=== PATIENT | female | born 1950 | race Caucasian/White ===

== ENCOUNTER 2018-01-02 08:48 | Day surgery (SDC) | payer MEDICARE, OTHER ==
[~2018-01-02 08:48] MED LIST: Cefuroxime 10 MG/ML SYRINGE EYERT SCH; Lidocaine 1% PF 2 ML SDV INJECT SCH; Pilocarpine 4% Ophth Soln 15 ML Bot EYERT SCH
[2018-01-02] MEDS: Polymyxin B/Trimethoprim 10 ML Bottle EYERT SCH ×3 (09:13→11:01)
[2018-01-02] MEDS: Brimonidine 0.2% Ophth Soln 5 ML Bottle EYERT SCH ×3 (09:20→11:01)
[2018-01-02] MEDS: Phenylephrine 2.5% Ophth Soln 2 ML Bot EYERT SCH ×5 (09:24→10:42)
[2018-01-02] MEDS: Tropicamide 1% Ophth Soln 3 ML Bottle EYERT SCH ×4 (09:28→10:12)
--- NOTE | 2018-01-02 09:34 | PCM.PREANE ---
Preanesthetic Assessment - Anesthesia/Transfusion/Family Hx Anesthesia History: Prior Anesthesia Without Reaction Family History of Anesthesia Reaction: No Transfusion History: No Prior Transfusion(s) - Review of Systems General: No Symptoms Pulmonary: Other Cardiovascular: Other ( high cholesterol, s/p stent) Gastrointestinal: No Symptoms Neurological: Difficulty Walking (pt feels walking has gotten worse), Other (hx of stroke, 10-12 years ago, right carotid 100% occluded and had surgery) Other: Reports: Liver Problems (hepatitis) - Physical Assessment NPO Status Date: 01/01/18 NPO Status Time: 21:00 Pulse: 56 O2 Sat by Pulse Oximetry: 99 Respiratory Rate: 16 Blood Pressure: 100/51 Vital Signs: Last Vital Signs Temp 36.8 C 01/02/18 09:10 Pulse 56 L 01/02/18 09:10 Resp 16 01/02/18 09:10 BP 100/51 L 01/02/18 09:10 Pulse Ox 99 01/02/18 09:10 Height: 1.6 m Weight: 68.039 kg ASA Class: 3 Mental Status: Alert & Oriented x3 Airway Class: Mallampati = 2 Dentition: Reports: Dentures Thyro-Mental Finger Breadths: 3 Mouth Opening Finger Breadths: 3 ROM/Head Extension: Full Lungs: Clear to Auscultation, Normal Respiratory Effort Cardiovascular: Regular Rate, Regular Rhythm - Allergies Allergies/Adverse Reactions: Allergies Allergy/AdvReac Type Severity Reaction Status Date / Time No Known Allergies Allergy Verified 01/01/18 13:05 - Anesthesia Plan Beta Sadie: Metoprolol Med Last Dose Date: 01/02/18 Med Last Dose Time: 05:00 - Acknowledgements Anesthesia Type Planned: MAC Pt an Appropriate Candidate for the Planned Anesthesia: Yes Alternatives and Risks of Anesthesia Discussed w Pt/Guardian: Yes Pt/Guardian Understands and Agrees with Anesthesia Plan: Yes PreAnesthesia Questionnaire - HOME MEDS Home Medications: Home Meds Aspirin [Halfprin] 81 mg PO DAILY 01/01/18 [History] Carbidopa 25 mg PO BID 01/01/18 [History] Cholecalciferol (Vitamin D3) [Vitamin D3] 1,000 units PO DAILY 01/01/18 [History ] Doxylamine Succinate [Unisom] 25 mg PO BEDTIME 01/01/18 [History] Metoprolol Tartrate 12.5 mg PO BID 01/01/18 [History] atorvaSTATin [Lipitor] 40 mg PO BEDTIME 01/01/18 [History] - CURRENT (IN HOUSE) MEDS Current Meds: Current Medications Brimonidine Tartrate (Alphagan 0.2% Ophth Soln) 0 ml EYERT ASDIRECTED CHONG Stop: 01/02/18 18:00 Last Admin: 01/02/18 09:20 Dose: 1 drop Cefuroxime Sodium (Zinacef) 0 mg EYERT ASDIRECTED CHONG Stop: 01/02/18 18:00 Lidocaine HCl (Xylocaine-Mpf 1%) 0 ml INJECT ASDIRECTED CHONG Stop: 01/02/18 18:00 Phenylephrine HCl ([place]-Synephrine 2.5% Ophth Soln) 0 ml EYERT ASDIRECTED CHONG Stop: 01/02/18 18:00 Last Admin: 01/02/18 09:24 Dose: 1 drop Pilocarpine HCl (Pilocar 4% Ophth Soln) 0 ml EYERT ASDIRECTED CHONG Stop: 01/02/18 18:00 Polymyxin/Trimethoprim Sulfate (Polytrim Ophth Soln) 0 ml EYERT ASDIRECTED CHONG Stop: 01/02/18 18:00 Last Admin: 01/02/18 09:13 Dose: 1 drop Tetracaine HCl (Tetracaine 0.5% Steri-Unit Viri) 0 ml EYERT ASDIRECTED CHONG Stop: 01/02/18 18:00 Tropicamide (Mydriacyl 1% Ophth Soln) 0 ml EYERT ASDIRECTED CHONG Stop: 01/02/18 18:00
[2018-01-02] MEDS: Tetracaine HCl/PF 0.5% 4 ML Bottle EYERT SCH ×2 (10:26→10:47)
--- NOTE | 2018-01-02 11:06 | PCM48HPAN ---
Post Anesthesia Note - EVALUATION WITHIN 48HRS OF ANESTHETIC Vital Signs in Normal Range: Yes Patient Participated in Evaluation: Yes Respiratory Function Stable: Yes Airway Patent: Yes Cardiovascular Function Stable: Yes Hydration Status Stable: Yes Pain Control Satisfactory: Yes Nausea and Vomiting Control Satisfactory: Yes Mental Status Recovered: Yes Pulse Rate: 52 SaO2: 100 Resp Rate: 16 Blood Pressure: 110/54
== END 2018-01-02 11:15 | disposition home or self-care (01) ==
LOC: JD.SDS 08:48
PROVIDERS: ATTEND Ophthalmology
DX: H25.813 Combined forms of age-related cataract, bilateral (principal); E78.00 Pure hypercholesterolemia, unspecified; H35.363 Drusen (degenerative) of macula, bilateral; H35.3131 Nonexudative age-related macular degeneration, bilateral, early dry stage; G20 Parkinson's disease; I67.89 Other cerebrovascular disease; H16.103 Unspecified superficial keratitis, bilateral; H16.223 Keratoconjunctivitis sicca, not specified as Sjogren's, bilateral; H02.831 Dermatochalasis of right upper eyelid; H35.1 Retinopathy of prematurity; Z79.82 Long term (current) use of aspirin; Z79.899 Other long term (current) drug therapy
CPT/HCPCS: 66984; C1780; J0697; J2001; A9270-GY

== ENCOUNTER 2018-01-30 07:04 | Day surgery (SDC) | payer MEDICARE, OTHER ==
[2018-01-30] MEDS: Polymyxin B/Trimethoprim 10 ML Bottle EYERT SCH ×4 (07:18→09:01)
[2018-01-30] MEDS: Brimonidine 0.2% Ophth Soln 5 ML Bottle EYELF SCH ×4 (07:24→09:01)
--- NOTE | 2018-01-30 07:26 | PCM.PREANE ---
Preanesthetic Assessment - Anesthesia/Transfusion/Family Hx Anesthesia History: Prior Anesthesia Without Reaction Family History of Anesthesia Reaction: No Transfusion History: No Prior Transfusion(s) - Review of Systems General: No Symptoms, Other (hx hepatitis) Pulmonary: No Symptoms Cardiovascular: No Symptoms, Other (high cholesterol) Gastrointestinal: No Symptoms Neurological: Other (hx of stroke with weakness on left side) - Physical Assessment NPO Status Date: 01/29/18 NPO Status Time: 21:00 Pulse: 50 O2 Sat by Pulse Oximetry: 98 Respiratory Rate: 16 Blood Pressure: 122/60 Weight: 68.039 kg ASA Class: 3 Mental Status: Alert & Oriented x3 Airway Class: Mallampati = 2 Dentition: Reports: Normal Dentition Thyro-Mental Finger Breadths: 3 Mouth Opening Finger Breadths: 3 ROM/Head Extension: Full Lungs: Clear to Auscultation, Normal Respiratory Effort Cardiovascular: Regular Rate, Regular Rhythm - Allergies Allergies/Adverse Reactions: Allergies Allergy/AdvReac Type Severity Reaction Status Date / Time No Known Allergies Allergy Verified 01/29/18 12:37 - Blood Blood Available: No Product(s) Available: None - Anesthesia Plan Pre-Op Medication Ordered: None Beta Sadie: Metoprolol Med Last Dose Date: 01/30/18 Med Last Dose Time: 06:00 - Acknowledgements Anesthesia Type Planned: MAC Pt an Appropriate Candidate for the Planned Anesthesia: Yes Alternatives and Risks of Anesthesia Discussed w Pt/Guardian: Yes Pt/Guardian Understands and Agrees with Anesthesia Plan: Yes PreAnesthesia Questionnaire - HOME MEDS Home Medications: Home Meds Aspirin [Halfprin] 81 mg PO DAILY 01/01/18 [History] Carbidopa 25 mg PO BID 01/01/18 [History] Cholecalciferol (Vitamin D3) [Vitamin D3] 1,000 units PO DAILY 01/01/18 [History ] Doxylamine Succinate [Unisom] 25 mg PO BEDTIME 01/01/18 [History] Metoprolol Tartrate 12.5 mg PO BID 01/01/18 [History] atorvaSTATin [Lipitor] 40 mg PO BEDTIME 01/01/18 [History] - CURRENT (IN HOUSE) MEDS Current Meds: Current Medications Brimonidine Tartrate (Alphagan 0.2% Ophth Soln) 0 ml EYELF ASDIRECTED CHONG Stop: 01/30/18 19:00 Cefuroxime Sodium (Zinacef) 0 mg EYELF ASDIRECTED CHONG Stop: 01/30/18 19:00 Lidocaine HCl (Xylocaine-Mpf 1%) 0 ml INJECT ASDIRECTED CHONG Stop: 01/30/18 19:00 Phenylephrine HCl ([place]-Synephrine 2.5% Ophth Soln) 0 ml EYELF ASDIRECTED CHONG Stop: 01/30/18 19:00 Pilocarpine HCl (Pilocar 4% Ophth Soln) 0 ml EYELF ASDIRECTED CHONG Stop: 01/30/18 19:00 Polymyxin/Trimethoprim Sulfate (Polytrim Ophth Soln) 0 ml EYERT ASDIRECTED CHONG Stop: 01/30/18 19:00 Last Admin: 01/30/18 07:18 Dose: 1 drop Tetracaine HCl (Tetracaine 0.5% Steri-Unit Viri) 0 ml EYELF ASDIRECTED CHONG Stop: 01/30/18 19:00 Tropicamide (Mydriacyl 1% Ophth Soln) 0 ml EYELF ASDIRECTED CHONG Stop: 01/30/18 19:00
[2018-01-30] MEDS: Phenylephrine 2.5% Ophth Soln 2 ML Bot EYELF SCH ×6 (07:29→08:39)
[2018-01-30] MEDS: Tropicamide 1% Ophth Soln 3 ML Bottle EYELF SCH ×4 (07:34→08:14)
[2018-01-30] MEDS: Tetracaine HCl/PF 0.5% 4 ML Bottle EYELF SCH ×3 (07:58→08:49)
[2018-01-30] MEDS: Lidocaine 1% PF 2 ML SDV INJECT SCH ×2 (07:58→08:49)
[2018-01-30] MEDS: Cefuroxime 10 MG/ML SYRINGE EYELF SCH ×2 (07:59→09:01)
[2018-01-30] MEDS: Pilocarpine 4% Ophth Soln 15 ML Bot EYELF SCH ×2 (08:00→09:01)
--- NOTE | 2018-01-30 09:04 | PCM48HPAN ---
Post Anesthesia Note - EVALUATION WITHIN 48HRS OF ANESTHETIC Vital Signs in Normal Range: Yes Patient Participated in Evaluation: Yes Respiratory Function Stable: Yes Airway Patent: Yes Cardiovascular Function Stable: Yes Hydration Status Stable: Yes Pain Control Satisfactory: Yes Nausea and Vomiting Control Satisfactory: Yes Mental Status Recovered: Yes Pulse Rate: 46 SaO2: 100 Resp Rate: 20 Temperature: 36.5 C Blood Pressure: 98/52
== END 2018-01-30 09:14 | disposition home or self-care (01) ==
LOC: JD.SDS 07:04
PROVIDERS: ATTEND Ophthalmology
DX: H25.812 Combined forms of age-related cataract, left eye (principal); H35.3131 Nonexudative age-related macular degeneration, bilateral, early dry stage; H35.363 Drusen (degenerative) of macula, bilateral; G20 Parkinson's disease; E78.00 Pure hypercholesterolemia, unspecified; I69.354 Hemiplegia and hemiparesis following cerebral infarction affecting left non-dominant side; H16.223 Keratoconjunctivitis sicca, not specified as Sjogren's, bilateral; H02.834 Dermatochalasis of left upper eyelid; H02.831 Dermatochalasis of right upper eyelid; H16.103 Unspecified superficial keratitis, bilateral; Z87.891 Personal history of nicotine dependence; Z79.82 Long term (current) use of aspirin; Z79.899 Other long term (current) drug therapy; Z96.1 Presence of intraocular lens; Z98.41 Cataract extraction status, right eye
CPT/HCPCS: 66984; C1780; J0697; J2001; A9270-GY

== ENCOUNTER 2019-06-18 22:01 | Emergency (ER) | payer MEDICARE, OTHER ==
--- NOTE | 2019-06-18 22:35 | EDM.PDOC ---
ED HPI GENERAL MEDICAL PROBLEM - General Chief Complaint: General Stated Complaint: [facility] Time Seen by Provider: 06/18/19 22:10 Source of Information: Reports: Patient, EMS Notes Reviewed, RN Notes Reviewed History Limitations: Reports: No Limitations - History of Present Illness INITIAL COMMENTS - FREE TEXT/NARRATIVE: Patient is a 69-year-old female who presents via [facility] for the evaluation of right-sided chest pain and a fall. The patient states that she fell at home tonight, however she did not have any sort of dizziness/ lightheadedness or weakness prior to the fall. She states that she went to turn, lost her balance , and ended up falling and striking her right chest on the coffee table, then falling backwards and hitting her back on the recliner. She did not hit her head, nor does she recall any loss of consciousness. The patient's ended up helping her up off the floor, got her to bed, but she was having a lot of right-sided chest discomfort and back pain, and this prompted them to call the ambulance for further evaluation. [facility] did start an IV, and she did get 1 mg Dilaudid, and 2 mg Zofran in route to the hospital. Patient notes that she has had a recent fall at home roughly 3 weeks ago, but she was not brought in for evaluation at that time. She also states that she had an NM 2-3 years ago. Treatments DRUG SAFETY DATA MANAGEMENT SPECIALIST: Reports: Other Medication(s) Other Treatments DRUG SAFETY DATA MANAGEMENT SPECIALIST: dilaudid, zofran Right Chest Pain Score (Numeric/FACES): 3 - Related Data Allergies Allergy/AdvReac Type Severity Reaction Status Date / Time No Known Allergies Allergy Verified 01/29/18 12:37 Home Meds: Home Meds Aspirin [Halfprin] 81 mg PO DAILY 01/01/18 [History] Carbidopa 25 mg PO BID 01/01/18 [History] Cholecalciferol (Vitamin D3) [Vitamin D3] 1,000 units PO DAILY 01/01/18 [History ] Doxylamine Succinate [Unisom] 25 mg PO BEDTIME 01/01/18 [History] Metoprolol Tartrate 12.5 mg PO BID 01/01/18 [History] atorvaSTATin [Lipitor] 40 mg PO BEDTIME 01/01/18 [History] Acetaminophen/oxyCODONE [Percocet 325-5 MG] 1 each PO Q6H PRN #12 tab 06/19/19 [ Rx] Past Medical History Cardiovascular History: Reports: NM, Stents Musculoskeletal History: Reports: Other (See Below) Other Musculoskeletal History: back surgery - Past Surgical History Cardiovascular Surgical History: Reports: Carotid Stents Social & Family History - Tobacco Use Smoking Status *Q: Former Smoker Used Tobacco, but Quit: Yes Month/Year Tobacco Last Used: 2015 - Caffeine Use Caffeine Use: Reports: Coffee ED ROS GENERAL - Review of Systems Review Of Systems: See Below Constitutional: Denies: Fever, Chills HEENT: Reports: No Symptoms Respiratory: Denies: Shortness of Breath Cardiovascular: Reports: Chest Pain (Right side chest pain). Denies: Lightheadedness Endocrine: Reports: No Symptoms GI/Abdominal: Denies: Abdominal Pain, Constipation, Diarrhea, Nausea, Vomiting : Reports: No Symptoms Musculoskeletal: Reports: Back Pain (Right upper back pain) Skin: Reports: No Symptoms Neurological: Denies: Dizziness, Headache, Seizure, Syncope, Difficulty Walking , Weakness Psychiatric: Reports: No Symptoms Hematologic/Lymphatic: Reports: No Symptoms Immunologic: Reports: No Symptoms ED EXAM, GENERAL - Physical Exam Exam: See Below Exam Limited By: No Limitations General Appearance: Alert, WD/WN, No Apparent Distress Eye Exam: Bilateral Eye: EOMI, Normal Inspection, PERRL Ears: Normal External Exam Throat/Mouth: Normal Inspection, Normal Lips, Normal Teeth, Normal Gums, Normal Oropharynx, Normal Voice, No Airway Compromise Head: Atraumatic, Normocephalic Neck: Normal Inspection, Supple, Non-Tender, Full Range of Motion Respiratory/Chest: No Respiratory Distress, Lungs Clear, Normal Breath Sounds, No Accessory Muscle Use, Other (R chest was tender around rib 4-5 midclavicularly) Cardiovascular: Normal Peripheral Pulses, Regular Rate, Rhythm, No Murmur Peripheral Pulses: 3+: Radial (L), Radial (R) Back Exam: Normal Inspection, Other (Right upper back tenderness to palpation.) Extremities: Normal Inspection, Normal Range of Motion, Normal Capillary Refill Neurological: Alert, Oriented, Normal Cognition, No Motor/Sensory Deficits Psychiatric: Normal Affect, Normal Mood Skin Exam: Warm, Dry, Intact, Normal Color, No Rash Course - Vital Signs Last Recorded V/S: Last Vital Signs Temp 97.6 F 06/18/19 22:04 Pulse 64 06/18/19 22:04 Resp 20 06/18/19 22:04 BP 120/60 06/18/19 22:04 Pulse Ox 90 L 06/18/19 22:04 - Orders/Labs/Meds Orders: Active Orders 24 hr Category Date Time Status Incentive Spirometry [RT Incentive Spirometry] [RC] Care 06/19/19 00:04 Active Q1HWA Chest wo Cont [CT] Stat Exams 06/18/19 22:20 Taken Meds: Medications Discontinued Medications Generic Name Dose Route Start Last Admin Trade Name Freq PRN Reason Stop Dose Admin Hydromorphone HCl 1 mg 06/18/19 23:15 06/18/19 23:20 Dilaudid IVPUSH 06/18/19 23:16 1 mg ONETIME ONE Administration Oxycodone/Acetaminophen 1 tab 06/19/19 00:04 Percocet 325-5 Mg PO 06/19/19 00:05 ONETIME ONE - Re-Assessments/Exams Free Text/Narrative Re-Assessment/Exam: 06/18/19 22:35 Patient presents to the ED for the evaluation of injury sustained after a fall. Did order a chest CT without contrast for further evaluation of bony fracture or abnormality. Suspicious for a rib fracture at this time. 06/18/19 23:54 Dr. Colbert did review the CT with me, and he does appreciate an area that may be suspicious for acute rib fracture however this is very mild , he could not appreciate any thoracic spine injury at this time. He did note that the patient has mild scoliosis however. 06/19/19 00:08 Vrad did demonstrate an old posttraumatic deformity of the right posterior chest with resection of the posterior aspect of the right sixth and seventh ribs. Questionable acute fracture of the anterior aspect of the right seventh rib which is nondisplaced, and underlying COPD. Departure - Departure Time of Disposition: 23:55 Disposition: Home, Self-Care 01 Condition: Fair Clinical Impression: Rib pain on right side Fall at home Qualifiers: Encounter type: initial encounter Qualified Code(s): W19.XXXA - Unspecified fall, initial encounter - Discharge Information *PRESCRIPTION DRUG MONITORING PROGRAM REVIEWED*: No *COPY OF PRESCRIPTION DRUG MONITORING REPORT IN PATIENT VIRIDIANA: No Prescriptions: Acetaminophen/oxyCODONE [Percocet 325-5 MG] 1 each PO Q6H PRN #12 tab PRN Reason: Pain Instructions: Chest Wall Pain, [id number] Forms: ED Department Discharge Additional Instructions: You have been evaluated in the ED for your right sided rib pain. Your Chest CT demonstrated no acute rib fracure or fracture of any thoracic/ cervical vertebrae. Please use ice as tolerated to the affected area. You may take Tylenol 500 mg or ibuprofen 600mg q6 hrs for pain relief. Please do so until you have a tolerable level of pain with activity. Do not exceed 4000mg Tylenol or 3200mg ibuprofen in a 24 hour time period. You were given a prescription for Percocet, 5/325, please take one tab every 6 hours as needed for further pain relief. Please try to take as little of these as possible, as these can be quite addictive, these medications can also be constipating, recommend you start taking MiraLAX or a stool softener while taking these medications to help guard against constipation. Please return to ED if your symptoms should change or worsen. - My Orders Last 24 Hours: My Active Orders 06/18/19 22:20 Chest wo Cont [CT] Stat 06/19/19 00:04 Incentive Spirometry [RT Incentive Spirometry] [RC] Q1HWA - Assessment/Plan Last 24 Hours: My Active Orders 06/18/19 22:20 Chest wo Cont [CT] Stat 06/19/19 00:04 Incentive Spirometry [RT Incentive Spirometry] [RC] Q1HWA
[2019-06-18] MEDS ORDERED: HYDROmorphone 1 MG/ML Syringe IVPUSH ONE (23:15)
[2019-06-19] MEDS ORDERED: Acetaminophen/oxyCODONE 325-5 MG Tab PO ONE (00:04)
--- NOTE | 2019-06-19 08:51 | CT ---
CT chest Technique: Multiple axial sections were obtained from above the lung apices inferiorly through the lung bases. Intravenous contrast was not utilized. Comparison: No prior chest CT. Findings: Partial rib resection is noted within the 6th and 7th right ribs. Slight deformity is seen within the anterior right 7th rib compatible with fracture. Uncertain if this is acute or old. No additional rib abnormality is seen. Scattered degenerative change is seen throughout the thoracic spine. No acute compression deformities are seen. Lateral reconstructed images of the sternum appear within normal limits. Emphysematous changes are present. No acute parenchymal change is seen. No pleural effusions or pneumothorax is seen. Visualized upper abdominal structures show no discrete abnormality. Moderate coronary artery calcification is seen. Calcification is also noted within the thoracic aorta without aneurysm. No mediastinal abnormalities are otherwise seen. No axillary adenopathy is seen. Impression: 1. Prior rib resection within the 6th and 7th ribs. 2. Fracture within the anterior right 7th rib, uncertain if this is acute or old. 3. Emphysematous change. No other acute abnormality is seen. Diagnostic code #2 I agree with preliminary report from [facility], finalized on 06/19/19, 1:05 AM Central Time
== END 2019-06-19 00:45 | disposition home or self-care (01) ==
LOC: JD.ED 22:01
DX: R07.81 Pleurodynia (principal); I25.2 Old myocardial infarction; Z95.5 Presence of coronary angioplasty implant and graft; Z87.891 Personal history of nicotine dependence; Z79.82 Long term (current) use of aspirin; W01.190A Fall on same level from slipping, tripping and stumbling with subsequent striking against furniture, initial encounter; Y93.89 Activity, other specified; Y92.009 Unspecified place in unspecified non-institutional (private) residence as the place of occurrence of the external cause
CPT/HCPCS: 71250; 71250-26; 96374; 99283; 99285-25; A9270-GY; J1170

== ENCOUNTER 2019-09-05 07:10 | Day surgery (SDC) | payer MEDICARE, OTHER ==
[~2019-09-05 07:10] MED LIST changes: -Cefuroxime 10 MG/ML SYRINGE EYERT SCH; +Lactated Ringers 1,000 ML IV SCH; -Lidocaine 1% PF 2 ML SDV INJECT SCH; +Lidocaine 1%/Sod Bicarbonate in NS 8.4% 1 ML Syringe IDERM PRN; -Pilocarpine 4% Ophth Soln 15 ML Bot EYERT SCH; +Sodium Chloride 0.9% 10 ML Syringe FLUSH PRN
--- NOTE | 2019-09-05 08:02 | PCM.PREANE ---
Preanesthetic Assessment - Anesthesia/Transfusion/Family Hx Anesthesia History: Prior Anesthesia Without Reaction Family History of Anesthesia Reaction: No Transfusion History: No Prior Transfusion(s) - Review of Systems General: No Symptoms Pulmonary: No Symptoms Cardiovascular: No Symptoms Gastrointestinal: No Symptoms Neurological: No Symptoms Other: Reports: None - Physical Assessment NPO Status Date: 08/25/19 NPO Status Time: 04:00 ASA Class: 3 Mental Status: Alert & Oriented x3 Airway Class: Mallampati = 2 Thyro-Mental Finger Breadths: 3 Mouth Opening Finger Breadths: 3 ROM/Head Extension: Full Lungs: Clear to Auscultation, Normal Respiratory Effort Cardiovascular: Regular Rate, Regular Rhythm - Allergies Allergies/Adverse Reactions: Allergies Allergy/AdvReac Type Severity Reaction Status Date / Time No Known Allergies Allergy Verified 09/04/19 17:40 - Anesthesia Plan Beta Sadie: Metoprolol Med Last Dose Date: 09/04/19 Med Last Dose Time: 21:00 - Acknowledgements Anesthesia Type Planned: MAC Pt an Appropriate Candidate for the Planned Anesthesia: Yes Alternatives and Risks of Anesthesia Discussed w Pt/Guardian: Yes Pt/Guardian Understands and Agrees with Anesthesia Plan: Yes PreAnesthesia Questionnaire HEENT History: Reports: Impaired Vision Cardiovascular History: Reports: CAD, High Cholesterol, CA (pt states 2-3 years ago-CA), Stents Respiratory History: Reports: COPD, SOB (with exertion) Gastrointestinal History: Reports: Colon Polyp, GERD, Other (See Below) Other Gastrointestinal History: DYSPHAGIA, HEARTBURN Genitourinary History: Reports: None MOTOR ADJUSTER History: Reports: None Musculoskeletal History: Reports: Arthritis, Other (See Below) Other Musculoskeletal History: right foot pain, back pain, bilateral ankle pain and swelling, restless leg syndrome, weakness Neurological History: Reports: CVA Psychiatric History: Reports: Anxiety, Other (See Below) Other Psychiatric History: insomnia Endocrine/Metabolic History: Reports: Osteopenia, Vitamin D Deficiency Hematologic History: Reports: None Immunologic History: Reports: None Oncologic (Cancer) History: Reports: None Dermatologic History: Reports: Cellulitis, Eczema, Psoriasis, Other (See Below) Other Dermatologic History: right foot cellulitis, dermatophytosis, eczema, naval cellulitis, psorosis, vesicular palmoplantar eczema - Past Surgical History Head Surgeries/Procedures: Reports: None HEENT Surgical History: Reports: Cataract Surgery Cardiovascular Surgical History: Reports: Carotid Stents Respiratory Surgical History: Reports: None GI Surgical History: Reports: Colonoscopy Female Surgical History: Reports: Breast Biopsy, Hysterectomy Male Surgical History: Reports: None Endocrine Surgical History: Reports: None Neurological Surgical History: Reports: Other (See Below) Other Neurological Surgeries/Procedures: back surgery Oncologic Surgical History: Reports: None Dermatological Surgical History: Reports: None - SUBSTANCE USE Smoking Status *Q: Former Smoker Recreational Drug Use History: No - HOME MEDS Home Medications: Home Meds Aspirin [Halfprin] 81 mg PO DAILY 01/01/18 [History] Cholecalciferol (Vitamin D3) [Vitamin D3] 1,000 units PO DAILY 01/01/18 [History ] Doxylamine Succinate [Unisom] 12.5 mg PO BEDTIME 01/01/18 [History] Metoprolol Tartrate 12.5 mg PO BID 01/01/18 [History] atorvaSTATin [Lipitor] 40 mg PO BEDTIME 01/01/18 [History] Apremilast [Otezla] 30 mg PO BID 09/04/19 [History] Pramipexole Di-HCl [Mirapex] 0.125 mg PO QID PRN 09/04/19 [History] - CURRENT (IN HOUSE) MEDS Current Meds: Current Medications Lactated Ringer's (Ringers, Lactated) 1,000 mls @ 125 mls/hr IV ASDIRECTED CHONG Last Admin: 09/05/19 07:45 Dose: 125 mls/hr Lidocaine/Sodium Bicarbonate (Buffered Lidocaine 1% In Ns 8.4%) 0.25 ml IDERM ONETIME PRN PRN Reason: Prior to IV Start Last Admin: 09/05/19 07:44 Dose: 0.25 ml Sodium Chloride (Saline Flush) 10 ml FLUSH ASDIRECTED PRN PRN Reason: Keep Vein Open
[2019-09-05] MEDS ORDERED: Propofol 200 MG/20 ML SDV ONE ×2 (08:06→08:51)
[2019-09-05] MEDS ORDERED: Lidocaine 1% 4 ML ONE (08:07)
--- NOTE | 2019-09-05 09:13 | PCM48HPAN ---
Post Anesthesia Note - EVALUATION WITHIN 48HRS OF ANESTHETIC Vital Signs in Normal Range: Yes Patient Participated in Evaluation: Yes Respiratory Function Stable: Yes Airway Patent: Yes Cardiovascular Function Stable: Yes Hydration Status Stable: Yes Pain Control Satisfactory: Yes Nausea and Vomiting Control Satisfactory: Yes Mental Status Recovered: Yes Vital Signs: Last Vital Signs Temp 36.8 C 09/05/19 07:20 Pulse 89 09/05/19 07:20 Resp 20 09/05/19 07:20 BP 120/65 09/05/19 07:20 Pulse Ox 98 09/05/19 07:20
--- NOTE | 2019-09-05 09:15 | PCM.PRNOTE ---
- Free Text/Narrative Note: Date: 09/05/2019 Procedure(s): esophagogastroduodenoscopy and screening colonoscopy Endoscopist: Jasson Womack MD Findings: benign-appearing minor Schatzki ring. Atrophic gastric mucosa. Good bowel prep; ileocecal valve visualized. Two small broad-based polyps biopsied with base cauterized. No diverticular or hemorrhoidal disease noted. Detailed Report: The patient was taken to the endoscopy suite and placed in left lateral decubitus position. Monitored anesthesia was initiated, and timeout performed. A bite-block was placed, and a lubricated endoscope was inserted in the mouth all the way to the second portion of the duodenum. The duodenum appeared grossly normal. The pylorus appeared patulous, and the entire mucosal surface of the stomach appeared atrophied, with no rugal folds noted. A sample biopsy of the gastric mucosa was obtained. On retroflexion, no hiatal hernia was appreciated. The Z line appeared normal, with no evidence of esophagitis or metaplasia. A benign-appearing mild Schatzki ring was noted a few centimeters proximal to the Z line, the remainder of the esophagus appeared normal. After withdrawing the upper endoscope, attention was turned to colonoscopy. Visual inspection of the anus revealed no gross abnormalities. Digital rectal exam was unremarkable. The lubricated colonoscope was inserted and advanced all the way to the ileocecal valve. The prep was noted to be good. On slow withdrawal of the scope, mucosal surfaces were carefully inspected. A small subcentimeter broad-based polyp was identified in the descending colon, this was biopsied using the hot snare, and the base of the polyp was cauterized. An additional similar appearing polyp was noted in the sigmoid, this was biopsied using hot forceps. No diverticular disease was noted, no hemorrhoidal disease was noted. The patient tolerated the procedure well. Jasson Womack MD General Surgery
== END 2019-09-05 09:50 | disposition home or self-care (01) ==
LOC: JD.SDS 07:10
PROVIDERS: ATTEND Surgery
DX: Z12.11 Encounter for screening for malignant neoplasm of colon (principal); D12.2 Benign neoplasm of ascending colon; D12.4 Benign neoplasm of descending colon; K22.2 Esophageal obstruction; K31.89 Other diseases of stomach and duodenum; I25.10 Atherosclerotic heart disease of native coronary artery without angina pectoris; E78.00 Pure hypercholesterolemia, unspecified; K21.9 Gastro-esophageal reflux disease without esophagitis; E78.5 Hyperlipidemia, unspecified; L40.9 Psoriasis, unspecified; I25.2 Old myocardial infarction; J44.9 Chronic obstructive pulmonary disease, unspecified; F41.9 Anxiety disorder, unspecified; G25.81 Restless legs syndrome; M19.90 Unspecified osteoarthritis, unspecified site; Z87.891 Personal history of nicotine dependence; Z79.82 Long term (current) use of aspirin; Z79.899 Other long term (current) drug therapy; Z86.010 Personal history of colon polyps; Z86.73 Personal history of transient ischemic attack (TIA), and cerebral infarction without residual deficits; Z95.5 Presence of coronary angioplasty implant and graft
CPT/HCPCS: 43239; 45384; 45385; J2001; J2704; J7120; 00813

== ENCOUNTER 2020-07-22 21:11 | Emergency (ER) | payer MEDICARE, OTHER ==
[2020-07-22] MEDS ORDERED: HYDROmorphone 0.5 MG/0.5 ML Syringe IVPUSH ONE ×2 (21:22→23:15)
[2020-07-22] MEDS ORDERED: Ondansetron 4 MG/2 ML SDV IVPUSH ONE (21:22)
--- NOTE | 2020-07-22 21:23 | EDM.PDOC ---
<Joaquín Colbert Rolando - Last Filed: 07/23/20 22:23> ED HPI GENERAL MEDICAL PROBLEM - General Chief Complaint: Back Pain or Injury Stated Complaint: [facility] Time Seen by Provider: 07/22/20 21:11 Source of Information: Reports: Patient, EMS History Limitations: Reports: No Limitations - History of Present Illness INITIAL COMMENTS - FREE TEXT/NARRATIVE: 70-year-old female is brought to the emergency department by [facility]. [facility] was summoned by [place] [facility] for help in transporting this patient to [facility]. Patient relates that she fell in her own home around 1530 hrs. today. She is not sure why she fell. She also reports that she fell yesterday and banged up her right hip. She reports she landed hard on her buttocks and then fell backwards striking the back of her head on the floor. She denies losing consciousness. She states she laid on the floor for a period of time and then was able to crawl to furniture and help her self up to a chair. She did make to the bathroom around 1730 hrs. with a great deal of difficulty. Over time she is developed increasing pain in her lower back and this is the primary reason she summoned the ambulance. She took 2 hydrocodone tablets this afternoon and paramedics of administered 25 mcg of fentanyl in route to [facility]. They appreciated that there was some blood from the right back occipital scalp. Patient claims that she does have a headache but has not no nausea or vomiting. She denies any pain in her chest and is able to take a deep breath. Denies being ill with any fever or chills. Denies any genitourinary complaints or diarrhea. She reports that she has had a previous stroke and has had a previous right carotid endarterectomy. It appears that she may have some residual right-sided weakness. She usually gets along in her home without a gait aid. Onset: Today, Sudden Onset Date: 07/22/20 Onset Time: 15:30 Duration: Hour(s):, Getting Worse Location: Reports: Head (She does have a bump to the right occipital scalp that has been notably showing a little bit of blood.), Back (Severe pain diffuse lower back primarily upper mid lumbar spine.) Quality: Reports: Ache, Throbbing Severity: Moderate (Currently rates her pain a 7 out of 10.) Improves with: Reports: Rest Worsens with: Reports: Movement Context: Reports: Trauma (Fall at home of unclear reasoning.). Denies: Activity, Exercise, Lifting, Sick Contact Associated Symptoms: Reports: Loss of Appetite, Malaise, Weakness. Denies: Confusion, Chest Pain, Cough, cough w sputum, Fever/Chills, Headaches, Nausea/Vomiting, Rash, Seizure, Shortness of Breath, Syncope Treatments ORDER WORKER: Reports: Other (see below) (Did take 2 hydrocodone 525 mg strength pills at home before coming to the ED.) Lower Back Pain Score (Numeric/FACES): 10 - Related Data Allergies Allergy/AdvReac Type Severity Reaction Status Date / Time No Known Allergies Allergy Verified 07/22/20 21:15 Home Meds: Home Meds Aspirin [Halfprin] 81 mg PO DAILY 01/01/18 [History] Cholecalciferol (Vitamin D3) [Vitamin D3] 1,000 units PO DAILY 01/01/18 [History] Doxylamine Succinate [Unisom] 12.5 mg PO BEDTIME 01/01/18 [History] RX: Metoprolol Tartrate 12.5 mg PO BID 01/01/18 [History] Apremilast [Otezla] 30 mg PO BID 09/04/19 [History] Pramipexole Di-HCl [Mirapex] 0.125 mg PO QID PRN 09/04/19 [History] Hydrocodone/Acetaminophen [Hydrocodone-Acetamin 5-325 mg] 1 tab PO ASDIRECTED 07/22/20 [History] Acetaminophen/HYDROcodone [[place] 325-5 MG] 1 - 2 tab PO Q4H PRN #28 tablet 07/23/20 [Rx] polyethylene glycoL 3350 [MiraLAX] 17 gm PO DAILY #1 cont 07/23/20 [Rx] Past Medical History HEENT History: Reports: Impaired Vision Cardiovascular History: Reports: CAD, Hypertension, MT (about 4 and 1/2 years go.), Stents Respiratory History: Reports: COPD, SOB (with exertion) Gastrointestinal History: Reports: Colon Polyp, GERD, Other (See Below) Other Gastrointestinal History: DYSPHAGIA, HEARTBURN Genitourinary History: Reports: None METAL TURNER History: Reports: None Musculoskeletal History: Reports: Back Pain, Chronic, Other (See Below) Other Musculoskeletal History: back surgery Neurological History: Reports: CVA Psychiatric History: Reports: Anxiety, Other (See Below) Other Psychiatric History: insomnia Endocrine/Metabolic History: Reports: Osteopenia, Vitamin D Deficiency Hematologic History: Reports: None Immunologic History: Reports: None Oncologic (Cancer) History: Reports: None Dermatologic History: Reports: Cellulitis, Eczema, Psoriasis, Other (See Below) Other Dermatologic History: right foot cellulitis, dermatophytosis, eczema, naval cellulitis, psorosis, vesicular palmoplantar eczema - Past Surgical History Head Surgeries/Procedures: Reports: None HEENT Surgical History: Reports: Cataract Surgery Cardiovascular Surgical History: Reports: Carotid Stents Respiratory Surgical History: Reports: None GI Surgical History: Reports: Colonoscopy Female Surgical History: Reports: Breast Biopsy, Hysterectomy Male Surgical History: Reports: None Endocrine Surgical History: Reports: None Neurological Surgical History: Reports: Other (See Below) Other Neurological Surgeries/Procedures: back surgery Oncologic Surgical History: Reports: None Dermatological Surgical History: Reports: None Social & Family History - Caffeine Use Caffeine Use: Reports: Coffee - Living Situation & Occupation Living situation: Reports: Occupation: Retired ED ROS GENERAL - Review of Systems Review Of Systems: See Below Constitutional: Reports: Malaise, Weakness, Fatigue, Decreased Appetite. Denies: Fever, Chills, Weight Loss HEENT: Reports: Glasses, Other (Patient has a well-healed scar right lateral neck combined with a right carotid endarterectomy.) Respiratory: Reports: No Symptoms Cardiovascular: Reports: No Symptoms, Lightheadedness. Denies: Chest Pain, Blood Pressure Problem, Claudication, Dyspnea on Exertion, Edema, Orthopnea, Palpitations Endocrine: Reports: Fatigue GI/Abdominal: Denies: Abdominal Pain, Diarrhea, Nausea, Vomiting : Reports: Frequency, Incontinence (Primarily urgency induced.) Musculoskeletal: Reports: Back Pain (Ankle low back pain with previous lumbar spine discectomy.), Other (Has diffuse scoliosis of the spine. Primarily concave curvature to the left on the upper on the thoracic spine with a compensatory curve ) Skin: Reports: Bruising (Over her right hip greater trochanteric process) Neurological: Reports: Dizziness, Headache, Difficulty Walking, Weakness, Other (VS CVA with right-sided weakness. Previous right carotid endarterectomy). Denies: Confusion, Pre-Existing Deficit, Seizure, Tingling, Tremors, Trouble Speaking, Change in Speech Psychiatric: Reports: No Symptoms Hematologic/Lymphatic: Reports: No Symptoms Immunologic: Reports: No Symptoms ED EXAM,LOWER BACK PAIN/INJURY - Physical Exam Exam: See Below Exam Limited By: No Limitations General Appearance: Alert, WD/WN, Anxious, Moderate Distress, Other (Temperature is 36.4 with a heart rate of 88 and sinus. Respiratory is 20 with O2 sats of 94% room air BP 135/65.) Eye Exam: Bilateral Eye: Normal Inspection, PERRL (No scleral icterus or blepharal pallor.) Ears: Normal External Exam Nose: Normal Inspection Throat/Mouth: Normal Inspection, Normal Oropharynx, Other (Is dry and shriveled. Appears to be volume depleted. No injury to the dentition or tongue.) Head: Other (With nothing that will require suture repair.) Neck: Normal Inspection, Limited Range of Motion, Tender Lateral (Lateral aspect of the cervical spine she states no worse than normal.), Other (All healed right sided skull scar from a right carotid endarterectomy.). No: Non-Tender, Full Range of Motion, Lymphadenopathy (L), Lymphadenopathy (R) Respiratory/Chest: No Respiratory Distress, Lungs Clear, Normal Breath Sounds, No Accessory Muscle Use Cardiovascular: Normal Peripheral Pulses, Regular Rate, Rhythm, No Edema, No Gallop, No Murmur, No Rub, Other (No pain on compression of the thorax. No subcutaneous emphysema) GI/Abdominal: Normal Bowel Sounds, Soft, Non-Tender, No Organomegaly, No Mass, Pelvis Stable Back Exam: Other (Patient has a significant scoliosis of air upper thoracic spine concave to the left. Compensatory curve in the lumbar spine concave to the right. Tenderness mid and upper lumbar spine and lower thoracic spine on examination without bruises or contusions evident. Evidence of previous lumbar spine surgery. Increased lordotic curvature lumbar spine. There are no abrasions or contusions of the thoracic spine. She does have mild kyphosis of the thoracic spine as well.) Extremities: Normal Inspection, Normal Range of Motion, No Pedal Edema (Is able to lift both arms above her head there is no injuries to her hands or wrist elbows or shoulders or clavicles. Similarly I was able to raise both legs off the gurney and she has full internal/external rotation of both hips and no injuries to the knees ankles or feet identified.), Other (Patient does have some tenderness of the greater trochanter at process of her right hip. Straight reports that she fell yesterday and bruised up her right hip.) Neurological: Alert, Normal Dorsiflexion, CN II-XII Intact, Oriented x 3. No: Normal Mood/Affect DTR - Lower Extremities: 0: Ankle (R), Ankle (L), 1+: Knee (R), Knee (L) Psychiatric: Flat Affect Skin Exam: Warm, Dry, Intact, Normal Color, No Rash #1 Interpretation EKG Date: 07/22/20 Time: 21:50 Rhythm: NSR Rate (Beats/Min): 80 (Occasional PVCs) [place]: Normal P-Wave: Present QRS: Other ST-T: Other (Scooped ST segment depression leads IIand 3 representing a repolarization abnormality. Nonspecific) QT: Normal EKG Interpretation Comments: Borderline ECG Course - Radiology Interpretation Free Text/Narrative:: 70-year-old female presents to the ED per [facility] after they met up with [place] [facility] in route to [facility]. This lady resides in [place]. She reports falling in her living room the this afternoon approximately 1530 hrs. The reason for her fall is unclear at this time. She does have a history of cerebrovascular accident and a previous right carotid endarterectomy. She also has a history of coronary disease and has stents in place. She is currently not on Plavix or any blood thinners. Her chief complaint is pain throughout her lumbar spine. She believes she fell buttock first and then did hit the back of her head on the carpeted floor. She does have a small hematoma over the mid right occipital scalp. There is minimal abrasion in this area as well. No obvious injury to her cervical spine. She has a significant scoliosis of her thoracic spine concave to the right. There is also mild kyphosis of the thoracic spine. Pain throughout the upper and mid lumbar spine and lower thoracic spine on exam without abrasions or contusions. Evidence of previous surgery lumbar spine. No obvious injuries to her extremities. Plan she will have cardiac markers done ECG chest x-ray and coronavirus screen. She will have an x-ray of her pelvis. She will have CT of her head neck thoracic and lumbar spine performed. Coronavirus screen will be obtained since there is a good chance she will require hospitalization. Given 0.5 mg of Dilaudid IV for further pain relief and Zofran 4 mg IV. She has received 2 hydrocodone 5 325 mg tablets at home that she took around 1730 hrs. Paramedics gave her 25 mcg of fentanyl in route to [facility]. IV will be D5 normal saline at 125 mils per hour at this time medically she appears to be mildly volume depleted. - Re-Assessments/Exams Free Text/Narrative Re-Assessment/Exam: 07/22/20 22:00: Nurses were able to record a run of tachycardia which appears to be paroxysmal atrial tachycardia that lasted for approximately 15 seconds. The fastest rate was approximately 165/min. It is therefore possible that she is experiencing intermittent runs of PAT enough to cause dizziness and a fall. 07/22/20 22:17 CT of the head has been performed without contrast. It does not reveal any intracranial fractures. It does show small foci of encephalomalacia within the superior medial right frontal lobe. Scattered nonspecific hypodensities of the periventricular and deep subcortical white matter secondary to small vessel ischemic change. No intracranial hemorrhage or extra-axial fluid collection. No evidence of mass-effect or midline shift. [place] matter white matter differentiation is normal. Visualized sinuses are unremarkable with no air-fluid levels. CT cervical spine reveals straightening and slight reversal of the cervical lordosis particular noted at the C4 level. Vertebral body heights are maintained. No locked or perched facets identified multilevel facet arthropathy present. No acute cervical spine fracture. The dens is intact . There is degenerative arthritic change at the atlantal dens interface. CT of the thoracic spine reveals scoliosis concave to the right. There is evidence of degenerative arthritis with anterior osteophytes particularily in mid thoracic spine. There appears to be a anterior wedge compression fracture deformity of T7 which appears old. There is a 20% compression fracture of the superior endplate of T12 vertebra which appears to be acute. The posterior elements are not involved. CT of the lumbar spine reveals degenerative arthritic changes at multiple levels particularly throughout the facet joints with no compression fractures evident. There is mild levoscoliosis centered at T12 and a mild to moderate dextroscoliosis centered at L3. There is a grade 1 anterolisthesis of L5 upon S1 vertebra. There is degenerative disc disease at L1-L2 level with significant disc space foreshortening and subchondral sclerosis. More mild degenerative changes are present at L3-L4 and L5-S1 levels. The central canal caliber is satisfactorily maintained with no significant neuroforaminal stenosis identified. An x-ray of the pelvis reveals no pelvic fractures in both femoral necks and heads are intact. Will await over read by [facility] radiology services. 07/22/20 22:23 chest x-ray done portable reveals evidence of COPD with loss of vascularity throughout the mid right lower lung field and portions of the right middle lobe. The lungs are otherwise clear without any infiltrates. There is no pneumothorax or pleural effusion. Cardiac silhouette is normal.there is evidence of previous surgery involving the right sixth and seventh ribs posteriorly. These appear to be postsurgical changes hematology reveals a total white count of 8.22 with a differential is 72.9% neutrophils on the auto differential. Hemoglobin is 13.7 with hematocrit of 42.7. Platelet counts 220,000. At present the patient states that her pain is controlled. She is asking for some water which will be given. I spoke to her at length about she being a candidate for potential kyphoplasty and she has no interest in pursuing this avenue of treatment. She does use a walker at home most of the time except in her bedroom because there is not enough room. Tentatively she will stay in the ED overnight with a view to getting her to [facility] for a lumbar corset fitting. It is still up in the ER whether she will require admission to the hospital for a few days for pain management and PT/OT assessment. At present the hospital was on diversion and the patient will remain in the emergency room overnight. 07/22/20 22:46 PT is 10.3 with an INR of 0.96. PTT is 23.4. Sodium 139 with a potassium of 3.9. Chloride 104 with a bicarb of 28. Anion gap is 10.9 with a BUN of 13 and a creatinine of 1.0. GFR is 55. Glucose is 99. Calcium is 9.1 magnesium 2.0. Liver function is normal alkaline phosphatase is slightly elevated 120. CPK total is 59. Troponin I is less than 0.017 C-reactive protein is 0.9 BNP is minimally elevated at 186. Total protein 7.2 with an albumin fraction of 3.5. COVID-19 screen is not yet available 07/22/20 23:16 patient is having increased low back pain. Nurses will try and reposition her bed to a more comfortable position. Will repeat Dilaudid 0.5 mg IV now. I will try her on a low-dose Ativan 0.5 mg and about a half an hour so that she may get some sleep tonight.Urinalysis obtained by catheterization is c ompletely normal. COVID-19 screen is negative. 07/23/20 03:08 Patient has been able to sleep. Blood pressure is 112/39. O2 sats are 94% on room air 07/23/20 03:27 Just after my above comment the patient awoke from sleep and got out of bed on her own volition was found walking in the hallway by nursing staff. She was looking for the bathroom. She pulled her IV out and created a bit of a blood trail in her room. Nurses were able to get her to the washroom and then back to bed. 07/23/20 07:01 Patient will need to decide this morning whether the patient requires hospitalization and hopefully a bed will become available later today. She may also attempt to go home if we can get her fitted with a lumbosacral corset to support her lumbar spine. I will write a prescription for hydrocodone 5/325 mg tabs 1 or 2 every 4-6 hours necessary for pain relief in combination with MiraLAX powder 17 g once daily to prevent constipation. She was not interested in pursuing a surgical treatment plan. Unclear when [facility] will open either at 8 or 9:00 this morning. 07/23/20 09:45 she has decided to go home with the aid of a walker and will go to [facility] to be fitted for a lumbosacral corset. Her came in from [place] to pick her up and take her home. Prescription was written for pain medication and MiraLAX powder. Ideally she should be followed up by a neurosurgeon in [place] but I will leave that up to her since she was not keen on pursuing a surgical treatment plan. ie.kyphoplasty. Departure - Departure Time of Disposition: 09:45 Disposition: Home, Self-Care 01 Condition: Fair Clinical Impression: Fall as cause of accidental injury at home as place of occurrence Qualifiers: Encounter type: initial encounter Qualified Code(s): W19.XXXA - Unspecified fall, initial encounter Vertebral compression fracture Qualifiers: Encounter type: initial encounter Fracture of vertebra location: thoracic Thoracic vertebra fracture level: T12 Qualified Code(s): S22.080A - Wedge compression fracture of T11-T12 vertebra, initial encounter for closed fracture - Discharge Information *PRESCRIPTION DRUG MONITORING PROGRAM REVIEWED*: Not Applicable *COPY OF PRESCRIPTION DRUG MONITORING REPORT IN PATIENT VIRIDIANA: Not Applicable Prescriptions: polyethylene glycoL 3350 [MiraLAX] 17 gm PO DAILY #1 cont Acetaminophen/HYDROcodone [[place] 325-5 MG] 1 - 2 tab PO Q4H PRN #28 tablet PRN Reason: Back pain relief Instructions: Thoracic Spine Fracture, [id number] Referrals: PCP,Unknown [Ordering Only Provider] - Forms: ED Department Discharge Additional Instructions: Evaluation in the emergency room today in regards to a fall at home last evening with subsequent injury to the mid lower back. CT scan of the thoracic and lumbar spine reveals an old compression fracture of thoracic 7 vertebra but a new compression fracture of the superior endplate of T12 vertebra which is near your lower back. CT of the head proved to be negative for any intracranial bleeding or skull fracture similarly CT of the cervical spine revealed degenerative changes but no broken bones. Treatment is time to heal. Ideally should be fitted for a lumbosacral corset that she should put on first thing in the morning and wear throughout the day for the next 8 weeks to allow the bone to heal. Follow-up usually should be done with a neurosurgeon in [place] either - please phone [phone] to arrange a follow up a appointment. Suggest trying Motrin 600 mg with 1 [place] 5 /325 mg tablet every 6 hours for pain control. If pain is not controlled may take a second tablet of [place] 5 /325 mg strength 1-1/2 hours after the first one. All pain medication causes constipation. You will need to take MiraLAX powder 17 g or 1 scoop daily while on the pain medicine to prevent constipation from occurring. <Jaun Nieto L - Last Filed: 07/27/20 09:27> Course - Vital Signs Last Recorded V/S: Last Vital Signs Temp 97.6 F 07/22/20 21:21 Pulse 88 07/22/20 21:21 Resp 20 07/22/20 21:21 BP 135/65 07/22/20 21:21 Pulse Ox 94 L 07/22/20 21:21 - Orders/Labs/Meds Labs: Laboratory Tests 07/22/20 07/22/20 07/22/20 Range/Units 21:54 21:54 21:54 WBC 8.22 (3.98-10.04) K/mm3 RBC 4.63 (3.98-5.22) M/mm3 Hgb 13.7 (11.2-15.7) gm/dl Hct 42.7 (34.1-44.9) % MCV 92.2 (79.4-94.8) fl MCH 29.6 (25.6-32.2) pg MCHC 32.1 L (32.2-35.5) g/dl RDW Std Deviation 45.9 (36.4-46.3) fL Plt Count 220 (182-369) K/mm3 MPV 8.9 L (9.4-12.3) fl Neut % (Auto) 72.9 H (34.0-71.1) % Lymph % (Auto) 18.0 L (19.3-51.7) % [place] % (Auto) 5.8 (4.7-12.5) % Eos % (Auto) 3.0 (0.7-5.8) Baso % (Auto) 0.1 (0.1-1.2) % Neut # (Auto) 5.98 (1.56-6.13) K/mm3 Lymph # (Auto) 1.48 (1.18-3.74) K/mm3 [place] # (Auto) 0.48 H (0.24-0.36) K/mm3 Eos # (Auto) 0.25 (0.04-0.36) K/mm3 Baso # (Auto) 0.01 (0.01-0.08) K/mm3 PT 10.3 (9.7-12.0) SECONDS INR 0.96 APTT 23.4 (21.7-31.4) SECONDS Sodium 139 (136-145) mEq/L Potassium 3.9 (3.5-5.1) mEq/L Chloride 104 (98-107) mEq/L Carbon Dioxide 28 (21-32) mEq/L Anion Gap 10.9 (5-15) BUN 13 (7-18) mg/dL Creatinine 1.0 (0.55-1.02) mg/dL Est Cr Clr Drug Dosing 43.92 mL/min Estimated GFR (MDRD) 55 (>60) mL/min BUN/Creatinine Ratio 13.0 L (14-18) Glucose 99 (80-115) mg/dL Calcium 9.1 (8.5-10.1) mg/dL Magnesium 2.0 (1.8-2.4) mg/dl Total Bilirubin 0.4 (0.2-1.0) mg/dL AST 21 (15-37) U/L ALT 28 (14-59) U/L Alkaline Phosphatase 120 H (46-116) U/L Creatine Kinase 59 (26-192) U/L Troponin I < 0.017 (0.00-0.056) ng/mL C-Reactive Protein 0.9 (<1.0) mg/dL NT-Pro-B Natriuret Pep (0-125) pg/mL Total Protein 7.2 (6.4-8.2) g/dl Albumin 3.5 (3.4-5.0) g/dl Globulin 3.7 gm/dL Albumin/Globulin Ratio 1.0 (1-2) Urine Color (Yellow) Urine Appearance (Clear) Urine pH (5.0-8.0) Ur Specific [place] (1.005-1.030) Urine Protein (Negative) Urine Glucose (UA) (Negative) Urine Ketones (Negative) Urine Occult Blood (Negative) Urine Nitrite (Negative) Urine Bilirubin (Negative) Urine Urobilinogen (0.2-1.0) Ur Leukocyte Esterase (Negative) Urine RBC (0-5) /hpf Urine WBC (0-5) /hpf Ur Squamous Epith Cells (0-5) /hpf Urine Bacteria (FEW) /hpf Urine Mucus (FEW) /hpf SARS-CoV-2 RNA (WILVER) (NEGATIVE) 07/22/20 07/22/20 07/22/20 Range/Units 21:54 22:10 22:30 WBC (3.98-10.04) K/mm3 RBC (3.98-5.22) M/mm3 Hgb (11.2-15.7) gm/dl Hct (34.1-44.9) % MCV (79.4-94.8) fl MCH (25.6-32.2) pg MCHC (32.2-35.5) g/dl RDW Std Deviation (36.4-46.3) fL Plt Count (182-369) K/mm3 MPV (9.4-12.3) fl Neut % (Auto) (34.0-71.1) % Lymph % (Auto) (19.3-51.7) % [place] % (Auto) (4.7-12.5) % Eos % (Auto) (0.7-5.8) Baso % (Auto) (0.1-1.2) % Neut # (Auto) (1.56-6.13) K/mm3 Lymph # (Auto) (1.18-3.74) K/mm3 [place] # (Auto) (0.24-0.36) K/mm3 Eos # (Auto) (0.04-0.36) K/mm3 Baso # (Auto) (0.01-0.08) K/mm3 PT (9.7-12.0) SECONDS INR APTT (21.7-31.4) SECONDS Sodium (136-145) mEq/L Potassium (3.5-5.1) mEq/L Chloride (98-107) mEq/L Carbon Dioxide (21-32) mEq/L Anion Gap (5-15) BUN (7-18) mg/dL Creatinine (0.55-1.02) mg/dL Est Cr Clr Drug Dosing mL/min Estimated GFR (MDRD) (>60) mL/min BUN/Creatinine Ratio (14-18) Glucose (80-115) mg/dL Calcium (8.5-10.1) mg/dL Magnesium (1.8-2.4) mg/dl Total Bilirubin (0.2-1.0) mg/dL AST (15-37) U/L ALT (14-59) U/L Alkaline Phosphatase (46-116) U/L Creatine Kinase (26-192) U/L Troponin I (0.00-0.056) ng/mL C-Reactive Protein (<1.0) mg/dL NT-Pro-B Natriuret Pep 186 H (0-125) pg/mL Total Protein (6.4-8.2) g/dl Albumin (3.4-5.0) g/dl Globulin gm/dL Albumin/Globulin Ratio (1-2) Urine Color Yellow (Yellow) Urine Appearance Clear (Clear) Urine pH 6.5 (5.0-8.0) Ur Specific [place] 1.025 (1.005-1.030) Urine Protein Negative (Negative) Urine Glucose (UA) Negative (Negative) Urine Ketones Negative (Negative) Urine Occult Blood Negative (Negative) Urine Nitrite Negative (Negative) Urine Bilirubin Negative (Negative) Urine Urobilinogen 0.2 (0.2-1.0) Ur Leukocyte Esterase Negative (Negative) Urine RBC 0-5 (0-5) /hpf Urine WBC 0-5 (0-5) /hpf Ur Squamous Epith Cells 0-5 (0-5) /hpf Urine Bacteria Few (FEW) /hpf Urine Mucus Moderate H (FEW) /hpf SARS-CoV-2 RNA (WILVER) Negative (NEGATIVE) Meds: Medications Discontinued Medications Generic Name Dose Route Start Last Admin Trade Name Freq PRN Reason Stop Dose Admin Hydrocodone Bitart/Acetaminophen 1 tab 07/23/20 09:13 07/23/20 09:18 [place] 325-5 Mg PO 07/23/20 09:14 1 tab ONETIME ONE Administration Hydromorphone HCl 0.5 mg 07/22/20 21:22 07/22/20 22:02 Dilaudid IVPUSH 07/22/20 21:23 0.5 mg ONETIME ONE Administration Hydromorphone HCl 0.5 mg 07/22/20 23:15 07/22/20 23:20 Dilaudid IVPUSH 07/22/20 23:16 0.5 mg ONETIME ONE Administration Dextrose/Sodium Chloride 1,000 mls @ 125 mls/hr 07/22/20 21:30 07/22/20 22:00 Dextrose 5%-Normal Saline IV 125 mls/hr ASDIRECTED CHONG Administration Dextrose/Sodium Chloride 1,000 mls @ 100 mls/hr 07/22/20 23:00 Dextrose 5%-Normal Saline IV ASDIRECTED CHONG Lidocaine HCl 10 ml 07/23/20 00:02 Xylocaine 1% INJECT 07/23/20 00:03 ONETIME ONE Lorazepam 0.5 mg 07/22/20 23:45 07/23/20 04:02 Ativan IV 07/22/20 23:46 0.5 mg ONETIME ONE Administration Ondansetron HCl 4 mg 07/22/20 21:22 07/22/20 22:01 Zofran IVPUSH 07/22/20 21:23 4 mg ONETIME ONE Administration Departure - Departure Time of Disposition: 09:52
[2020-07-22] MEDS ORDERED: Dextrose 5%-0.9% NaCl 1,000 ML IV SCH ×2 (21:30→23:00)
[2020-07-22] MEDS ORDERED: LORazepam 2 MG/ML SDV IV ONE (23:45)
[2020-07-23] MEDS ORDERED: Lidocaine 1% 10 ML MDV INJECT ONE (00:02)
[2020-07-23] MEDS ORDERED: Acetaminophen/HYDROcodone 325-5 MG Tab PO ONE (09:13)
--- NOTE | 2020-07-23 15:39 | CT ---
CT cervical spine Technique: Multiple axial sections through the cervical spine were obtained. Intravenous contrast was not utilized. Cystic change is seen within the dens. Disc space narrowing is noted between the dens and C1 anterior arch. There is mild disc space narrowing at C3-4. Mild spondylolisthesis is seen due to degenerative apophyseal change. Severe disc space narrowing is noted at C4-5, C5-6, C6-7 and C7-T1. Other scattered degenerative apophyseal change is noted. No gross neural foraminal or central canal stenosis is seen. No discrete fracture is appreciated. Impression: 1. Degenerative change as noted above. 2. Nothing acute is appreciated. Diagnostic code #2 I agree with preliminary report from [facility], finalized on 07/22/20, 11:12 PM OLEO HASHER AND RENDERER
--- NOTE | 2020-07-23 15:41 | CT ---
Head CT Technique: Multiple axial sections through the brain were obtained. Intravenous contrast was not utilized. Comparison: Previous MRI brain exam of 08/28/14. Findings: Ventricles along with basal cisterns and sulci over the convexities are mildly prominent. Minimal areas of diminished density are noted within the periventricular as well as within the cortex of the upper right parietal region. Findings are felt compatible with small vessel ischemic demylenation change as well as probable old superficial parietal cortical infarct. No other abnormal parenchymal densities are seen. No evidence of intracranial hemorrhage. No midline shift or mass-effect is seen. No acute paranasal sinus findings are seen. Very minimal mucosal thickening is seen within the anterior ethmoid and frontal sinuses. No acute finding within the mastoid sinuses. No acute calvarial abnormality is appreciated. Impression: 1. Senescent change as noted above. 2. Nothing acute is definitely appreciated. Diagnostic code #3 I agree with preliminary report from [facility], finalized on 07/22/20, 11:11 PM DUBBING MACHINE OPERATOR
--- NOTE | 2020-07-23 15:41 | CR ---
Pelvis: AP view of the pelvis was obtained. Comparison: No prior pelvis x-ray is available. Surgical clips are seen within the pelvis. Mild disc space narrowing is noted within the spine. Joint spaces within both hips are maintained. Vascular calcification is seen. Osteopenia is present. No acute fracture or other abnormality is seen. Small soft tissue calcification is noted within the left buttock. Impression: 1. Findings as noted above. 2. Nothing acute is definitely appreciated on single AP pelvis study. Diagnostic code #2
--- NOTE | 2020-07-23 15:46 | CR ---
Chest: Portable view of the chest was obtained. Comparison: Prior chest x-ray of 05/27/20. Heart size and mediastinum are normal. Lungs are clear with no acute parenchymal change. Scoliosis is noted within the spine. Osteopenia is seen. Previous compression fracture within the superior T12 vertebral body is not seen on this exam. Several rib deformities are seen on the right side. Impression: 1. Nothing acute is identified. 2. Other findings as noted above which are believed to be incidental. Diagnostic code #2
--- NOTE | 2020-07-23 15:57 | CT ---
CT thoracic spine Technique: Multiple axial sections were obtained through the thoracic spine. Reconstructed coronal and sagittal images were obtained. Comparison: No previous studies available. Findings: Mild compression deformity is noted within the superior endplate of T12. There is no extension of fracture into the posterior spine or into the posterior elements. Other vertebral body heights are maintained. Old rib fractures are noted on the right side which show evidence of chronic pleural thickening. There is diffuse disc space narrowing noted within the cervical spine as well as throughout the thoracic spine. Mild scoliosis is noted. No additional fracture or subluxation is seen. Impression: 1. Mild compression deformity within the superior T12 vertebral body. No extension into the posterior elements are seen. No subluxation is seen. 2. Mild scoliosis with scattered degenerative change. Several old healed abnormalities on the right side causing pleural thickening. 3. No other acute abnormality is appreciated. Diagnostic code #3 I agree with preliminary report from [facility], finalized on 07/22/20, 11:24 PM RURAL SOCIOLOGIST
--- NOTE | 2020-07-23 15:57 | CT ---
Lumbar spine: Technique: Multiple axial sections were obtained through the lumbar spine. Reconstructed coronal and sagittal images were obtained. Findings: Acute compression deformity is seen superiorly within T12. Disc space narrowing is noted at L1 - with endplate sclerosis and anterior osteophytes. Mild disc space narrowing noted at L2-3 and L3-4. Moderate disc space narrowing with vacuum phenomena is seen within the L4-5 disc. Minimal spondylolisthesis at L5-S1 due to degenerative apophyseal change. Other degenerative apophyseal change is scattered within the lumbar spine. L4-5 disc shows diffuse disc bulging with thickening of the ligamentum flavum causing moderate central canal stenosis. No additional fracture is appreciated. Impression: 1. Degenerative change as noted above. 2. Mild acute superior compression deformity within T12. 3. Nothing acute is seen within the lumbar spine. Diagnostic code #3 I agree with preliminary report from [facility], finalized on 07/22/20, 11:24 PM SMALL BUSINESS CONSULTANT
== END 2020-07-23 09:45 | disposition home or self-care (01) ==
LOC: JD.ED 21:11
DX: S22.089A Unspecified fracture of T11-T12 vertebra, initial encounter for closed fracture (principal); M40.204 Unspecified kyphosis, thoracic region; I25.10 Atherosclerotic heart disease of native coronary artery without angina pectoris; I10 Essential (primary) hypertension; J44.9 Chronic obstructive pulmonary disease, unspecified; I25.2 Old myocardial infarction; Z95.5 Presence of coronary angioplasty implant and graft; Z20.828 Contact with and (suspected) exposure to other viral communicable diseases; Z79.82 Long term (current) use of aspirin; Z79.899 Other long term (current) drug therapy; Z86.73 Personal history of transient ischemic attack (TIA), and cerebral infarction without residual deficits; W19.XXXA Unspecified fall, initial encounter; Y92.009 Unspecified place in unspecified non-institutional (private) residence as the place of occurrence of the external cause
CPT/HCPCS: 36415; 70450; 71045; 72125; 72128; 72131; 72170; 80053; 81001; 82550; 83735; 83880; 84484; 85025; 85610; 85730; 86140; 93005; 96374; 96375; 96376; 99285; A9270; J1170; J2060; J2405; J7042; U0002; 93010; 99284

== ENCOUNTER 2021-06-26 09:40 | Emergency (ER) | payer MEDICARE, OTHER ==
[2021-06-26] MEDS ORDERED: HYDROmorphone 0.5 MG/0.5 ML Syringe IM ONE (11:33)
--- NOTE | 2021-06-26 11:37 | EDM.PDOC ---
ED HPI GENERAL MEDICAL PROBLEM - General Chief Complaint: Upper Extremity Injury/Pain Stated Complaint: RT WRIST COMPLAINT/BROKE 2WK AGO Time Seen by Provider: 06/26/21 11:02 Source of Information: Reports: Patient, RN Notes Reviewed History Limitations: Reports: No Limitations - History of Present Illness INITIAL COMMENTS - FREE TEXT/NARRATIVE: Patient is a 71-year-old female who presents to the ER for evaluation of a cast complaint. States that she broke her right wrist on 06/10/2021, and had a cast placed at the [facility] shortly after that. States that she has been having issues with pain, since then. She has been taking her scheduled Abrams without much relief along with some ibuprofen. Patient is having difficulty use wiggling her fingers much at all due to the pain. The cast does appear to be in possible misalignment as well. No other complaints such as fevers, chills, cough, shortness of breath. No specific numbness or tingling into the fingertips on the affected arm. Right Wrist Pain Score (Numeric/FACES): 9 - Related Data Allergies Allergy/AdvReac Type Severity Reaction Status Date / Time No Known Allergies Allergy Verified 06/26/21 09:55 Home Meds: Home Meds Aspirin [Halfprin] 81 mg PO DAILY 01/01/18 [History] Cholecalciferol (Vitamin D3) [Vitamin D3] 1,000 units PO DAILY 01/01/18 [History] Doxylamine Succinate [Unisom] 12.5 mg PO BEDTIME 01/01/18 [History] Metoprolol Tartrate 12.5 mg PO BID 01/01/18 [History] Apremilast [Otezla] 30 mg PO BID 09/04/19 [History] Pramipexole Di-HCl [Mirapex] 0.125 mg PO QID PRN 09/04/19 [History] Hydrocodone/Acetaminophen [Hydrocodone-Acetamin 5-325 mg] 1 tab PO ASDIRECTED 07/22/20 [History] Acetaminophen/HYDROcodone [Abrams 325-5 MG] 1 - 2 tab PO Q4H PRN #28 tablet 07/23/20 [Rx] polyethylene glycoL 3350 [MiraLAX] 17 gm PO DAILY #1 cont 07/23/20 [Rx] Past Medical History HEENT History: Reports: Impaired Vision Cardiovascular History: Reports: CAD, Hypertension, LA, Stents Respiratory History: Reports: COPD, SOB Gastrointestinal History: Reports: Colon Polyp, GERD, Other (See Below) Other Gastrointestinal History: DYSPHAGIA, HEARTBURN Genitourinary History: Reports: None GROUNDING ENGINEER History: Reports: None Musculoskeletal History: Reports: Back Pain, Chronic, Other (See Below) Other Musculoskeletal History: back surgery Neurological History: Reports: CVA Psychiatric History: Reports: Anxiety, Other (See Below) Other Psychiatric History: insomnia Endocrine/Metabolic History: Reports: Osteopenia, Vitamin D Deficiency Hematologic History: Reports: None Immunologic History: Reports: None Oncologic (Cancer) History: Reports: None Dermatologic History: Reports: Cellulitis, Eczema, Psoriasis, Other (See Below) Other Dermatologic History: right foot cellulitis, dermatophytosis, eczema, naval cellulitis, psorosis, vesicular palmoplantar eczema - Infectious Disease History Infectious Disease History: Reports: Chicken Pox, Measles - Past Surgical History Head Surgeries/Procedures: Reports: None HEENT Surgical History: Reports: Cataract Surgery Cardiovascular Surgical History: Reports: Carotid Stents Respiratory Surgical History: Reports: None GI Surgical History: Reports: Colonoscopy Female Surgical History: Reports: Breast Biopsy, Hysterectomy Endocrine Surgical History: Reports: None Neurological Surgical History: Reports: Other (See Below) Other Neurological Surgeries/Procedures: back surgery Oncologic Surgical History: Reports: None Dermatological Surgical History: Reports: None Social & Family History - Family History Family Medical History: No Pertinent Family History Oncologic: Reports: Other (See Below) Other Oncologic Family History: sister and brother of cancer unsure what type - Tobacco Use Tobacco Use Status *Q: Former Tobacco User Used Tobacco, but Quit: Yes Month/Year Tobacco Last Used: 3 years ago - Caffeine Use Caffeine Use: Reports: Coffee - Recreational Drug Use Recreational Drug Use: No - Living Situation & Occupation Living situation: Reports: Occupation: Retired Review of Systems - Review of Systems Review Of Systems: Comprehensive ROS is negative, except as noted in HPI. ED EXAM, GENERAL - Physical Exam Exam: See Below Exam Limited By: No Limitations General Appearance: Alert, WD/WN, No Apparent Distress Respiratory/Chest: No Respiratory Distress, Lungs Clear, Normal Breath Sounds, No Accessory Muscle Use, Chest Non-Tender Cardiovascular: Normal Peripheral Pulses, Regular Rate, Rhythm, No Edema Extremities: Normal Inspection, Normal Capillary Refill Neurological: Alert, Oriented, Normal Cognition, No Motor/Sensory Deficits Psychiatric: Normal Affect, Normal Mood Skin Exam: Warm, Dry, Intact, Normal Color, No Rash ED TRAUMA EXTREMITY PROCEDURES - Splinting Right Upper Extremity Splint Site: R wrist Pre-Procedure NV Status: Normal Post-Procedure NV Status: Normal Splint Material: Fiberglass Splint Design: Gutter (ulnar gutter short arm) Applied & Form Fitted By: Provider, Nurse Provider Post-Splint Application NV Check: NV Status Normal, Good Position Complications: No Course - Vital Signs Last Recorded V/S: Last Vital Signs Temp 97 F 06/26/21 09:53 Pulse 80 06/26/21 09:53 Resp 16 06/26/21 09:53 BP 138/68 06/26/21 09:53 Pulse Ox 92 L 06/26/21 09:53 - Orders/Labs/Meds Meds: Medications Discontinued Medications Generic Name Dose Route Start Last Admin Trade Name Eugeneq PRN Reason Stop Dose Admin Hydromorphone HCl 0.5 mg 06/26/21 11:33 06/26/21 12:13 Hydromorphone 0.5 Mg/0.5 Ml Syringe IM 06/26/21 11:34 0.5 mg ONETIME ONE Administration - Re-Assessments/Exams Free Text/Narrative Re-Assessment/Exam: 06/26/21 11:36 Patient presents to ER for the evaluation of a cast complaint. We will go ahead and take the cast off, and replace a splint for management. Will be given some IM Dilaudid for pain management prior to taking the cast off. Departure - Departure Time of Disposition: 12:51 Disposition: Home, Self-Care 01 Condition: Good Clinical Impression: Encounter for assessment of cast - Discharge Information *PRESCRIPTION DRUG MONITORING PROGRAM REVIEWED*: No *COPY OF PRESCRIPTION DRUG MONITORING REPORT IN PATIENT VIRIDIANA: No Instructions: Wrist Fracture Treated With Immobilization, [id number] Referrals: Nancy Ervin SCREEN WRITER [Primary Care Provider] - Forms: ED Department Discharge Additional Instructions: You have been evaluated in the ED for your right cast issue. Your cast was removed, and a different splint was placed for temporary management. Please use ice as tolerated to the affected area. You may elevate the affected area to provide further relief from swelling. You may take Tylenol 500 mg or ibuprofen 600mg q6 hrs for pain relief. Please do so until you have a tolerable level of pain with activity. Do not exceed 4000mg Tylenol, Do not exceed 3200mg ibuprofen in a 24 hour time period. Please continue all other pain medications as previously prescribed by your previous provider Please call Ortho for follow-up and further evaluation Dr. Curiel is our orthopedic surgeon, his office number is [phone]. Please call and set up an appointment as soon as possible for further management. This would be for repeat cast placement and ongoing management. Please return to ED if your symptoms should change or worsen. Sepsis Event Note (ED) - Evaluation Sepsis Screening Result: No Definite Risk - Focused Exam Vital Signs: Vital Signs Temp Pulse Resp BP Pulse Ox 06/26/21 09:53 97 F 80 16 138/68 92 L
== END 2021-06-26 13:40 | disposition home or self-care (01) ==
LOC: JD.ED 09:40
DX: Z46.89 Encounter for fitting and adjustment of other specified devices (principal); I25.10 Atherosclerotic heart disease of native coronary artery without angina pectoris; I10 Essential (primary) hypertension; I25.2 Old myocardial infarction; J44.9 Chronic obstructive pulmonary disease, unspecified; Z87.891 Personal history of nicotine dependence; Z79.82 Long term (current) use of aspirin; Z79.899 Other long term (current) drug therapy
CPT/HCPCS: 29125; 96372; 99283; J1170

== ENCOUNTER 2022-01-23 11:40 | Emergency (ER) | payer MEDICARE, OTHER ==
[2022-01-23] MEDS ORDERED: HYDROmorphone 0.5 MG/0.5 ML Syringe IM ONE ×2 (13:14→15:15)
== END 2022-01-23 16:00 | disposition home or self-care (01) ==
LOC: JD.ED 11:40
DX: S30.0XXA Contusion of lower back and pelvis, initial encounter (principal); S20.221A Contusion of right back wall of thorax, initial encounter; I25.10 Atherosclerotic heart disease of native coronary artery without angina pectoris; I10 Essential (primary) hypertension; I25.2 Old myocardial infarction; J44.9 Chronic obstructive pulmonary disease, unspecified; Z95.5 Presence of coronary angioplasty implant and graft; Z86.73 Personal history of transient ischemic attack (TIA), and cerebral infarction without residual deficits; Z79.82 Long term (current) use of aspirin; W18.09XA Striking against other object with subsequent fall, initial encounter
CPT/HCPCS: 72128; 72131; 96372; 99283; J1170

== ENCOUNTER 2022-12-30 11:51 | Inpatient (IN) | payer MEDICARE, BC ==
[2022-12-30 14:01] LABS: BASOPHILS ABSOLUTE AUTO 0.02 K/mm3 (0.01-0.08); BASOPHILS PERCENT AUTO 0.5 % (0.1-1.2); EOSINOPHILS PERCENT AUTO 2.3 (0.7-5.8); HEMATOCRIT 37.8 % (34.1-44.9); HEMOGLOBIN 12.5 gm/dl (11.2-15.7); IMMATURE GRAN ABSOLUTE AUTO 0.01 K/mm3 (0.00-0.10); IMMATURE GRAN PERCENT AUTO 0.2 % (<=1.0); LYMPHOCYTES ABSOLUTE AUTO 1.04 K/mm3 (1.18-3.74); LYMPHOCYTES PERCENT AUTO 24.2 % (19.3-51.7); MEAN CORPUSCULAR HGB CONC 33.1 g/dl (32.2-35.5); MEAN CORPUSCULAR VOLUME 93.8 fl (79.4-94.8); MEAN PLATELET VOLUME 9.4 fl (9.4-12.3); MONOCYTES ABSOLUTE AUTO 0.35 K/mm3 (0.24-0.36); MONOCYTES PERCENT AUTO 8.1 % (4.7-12.5); NEUTROPHILS ABSOLUTE AUTO 2.78 K/mm3 (1.56-6.13); NEUTROPHILS PERCENT AUTO 64.7 % (34.0-71.1); PLATELET COUNT,PLT 219 K/mm3 (182-369); RED BLOOD CELL COUNT 4.03 M/mm3 (3.98-5.22)
[2022-12-30] MEDS ORDERED: Ondansetron 4 MG/2 ML SDV IV PRN (14:18)
[2022-12-30] MEDS ORDERED: Polyethylene Glycol 3350 Powder 17 GM Packet PO PRN (14:18)
[2022-12-30 14:21] LABS: A/G RATIO 0.9 (1-2); ALBUMIN 3.1 g/dl (3.4-5.0); ANION GAP 12.7 (5-15); BILIRUBIN TOTAL 0.5 mg/dL (0.2-1.0); BUN/CREATININE RATIO 21.3 (14-18); CALCIUM 8.6 mg/dL (8.5-10.1); CREATININE 0.8 mg/dL (0.55-1.02); EST CRCL DRUG DOSING (CG) 45.72 mL/min; POTASSIUM,K 3.7 mEq/L (3.5-5.1); PROTEIN TOTAL,TP 6.4 g/dl (6.4-8.2)
[2022-12-30] MEDS ORDERED: Albuterol/Ipratropium 3.0-0.5 MG/3 ML Neb Soln NEB PRN (14:42)
[2022-12-30] MEDS ORDERED: Sodium Chloride 0.9% 10 ML Syringe FLUSH PRN (15:22)
[2022-12-30] MEDS: Acetaminophen 325 MG Tab PO SCH ×2 (15:35→21:11)
[2022-12-30] MEDS: Lidocaine 4% 1 each Patch TOP SCH (15:35)
[2022-12-30] MEDS: Enoxaparin 40 MG/0.4 ML Syringe SUBCUT SCH (15:35)
[2022-12-30] MEDS: oxyCODONE 5 MG Tab PO PRN (15:35)
[2022-12-30] MEDS: Docusate Sodium 100 MG Cap PO SCH (15:35)
[2022-12-30 17:48] LABS: APPEARANCE,URINE CLEAR (Clear); BILIRUBIN,URINE NEGATIVE (Negative); COLOR,URINE YELLOW (Yellow); GLUCOSE,URINE NEGATIVE (Negative); KETONES,URINE NEGATIVE (Negative); LEUKOCYTE ESTERASE,URINE TRACE (Negative); NITRITE,URINE NEGATIVE (Negative); OCCULT BLOOD,URINE NEGATIVE (Negative); PROTEIN,URINE NEGATIVE (Negative)
[2022-12-30 19:03] LABS: BACTERIA,URINE FEW /hpf (FEW); RBC,URINE 0-5 /hpf (0-5)
[2022-12-30 19:04] LABS: AMORPHOUS SEDIMENT,URINE FEW /hpf (NOT SEEN); MUCUS,URINE FEW /hpf (FEW)
[2022-12-30] MEDS: Melatonin 3 MG Tab PO PRN (21:13)
[2022-12-30] MEDS ORDERED: Ondansetron 4 MG/2 ML SDV IVPUSH PRN (23:35)
[2022-12-30] MEDS ORDERED: hydrALAZINE 20 MG/ML SDV IVPUSH PRN (23:35)
[2022-12-31] MEDS: Acetaminophen 325 MG Tab PO SCH ×4 (03:23→21:29)
[2022-12-31 06:00] LABS: BASOPHILS ABSOLUTE AUTO 0.02 K/mm3 (0.01-0.08); BASOPHILS PERCENT AUTO 0.5 % (0.1-1.2); EOSINOPHILS ABSOLUTE AUTO 0.22 K/mm3 (0.04-0.36); EOSINOPHILS PERCENT AUTO 5.7 (0.7-5.8); HEMATOCRIT 39.5 % (34.1-44.9); HEMOGLOBIN 12.9 gm/dl (11.2-15.7); LYMPHOCYTES ABSOLUTE AUTO 1.13 K/mm3 (1.18-3.74); LYMPHOCYTES PERCENT AUTO 29.4 % (19.3-51.7); MEAN CORPUSCULAR HEMOGLOBIN 30.6 pg (25.6-32.2); MEAN CORPUSCULAR HGB CONC 32.7 g/dl (32.2-35.5); MEAN CORPUSCULAR VOLUME 93.6 fl (79.4-94.8); MEAN PLATELET VOLUME 9.7 fl (9.4-12.3); MONOCYTES ABSOLUTE AUTO 0.38 K/mm3 (0.24-0.36); MONOCYTES PERCENT AUTO 9.9 % (4.7-12.5); NEUTROPHILS ABSOLUTE AUTO 2.09 K/mm3 (1.56-6.13); NEUTROPHILS PERCENT AUTO 54.5 % (34.0-71.1); PLATELET COUNT,PLT 223 K/mm3 (182-369); RED BLOOD CELL COUNT 4.22 M/mm3 (3.98-5.22); WHITE BLOOD CELL COUNT,WBC 3.84 K/mm3 (3.98-10.04)
[2022-12-31 06:21] LABS: ANION GAP 11.1 (5-15); BUN/CREATININE RATIO 15.6 (14-18); CALCIUM 8.8 mg/dL (8.5-10.1); CREATININE 0.9 mg/dL (0.55-1.02); EST CRCL DRUG DOSING (CG) 38.39 mL/min; POTASSIUM,K 4.1 mEq/L (3.5-5.1)
[2022-12-31] MEDS: atorvaSTATin 40 MG Tab PO SCH (08:23)
[2022-12-31] MEDS: Enoxaparin 40 MG/0.4 ML Syringe SUBCUT SCH (08:23)
[2022-12-31] MEDS: Metoprolol Tartrate 25 MG Tab PO SCH (08:23)
[2022-12-31] MEDS: Lidocaine 4% 1 each Patch TOP SCH (08:24)
[2022-12-31] MEDS: Aspirin 81 MG Tab.EC PO SCH (08:24)
[2022-12-31] MEDS: Docusate Sodium 100 MG Cap PO SCH (08:24)
[2022-12-31] MEDS: Pramipexole 0.25 MG Tab PO SCH (08:24)
[2022-12-31] MEDS ORDERED: Enoxaparin 40 MG/0.4 ML Syringe SUBCUT SCH (09:00)
[2022-12-31] MEDS: Acetaminophen/oxyCODONE 325-5 MG Tab PO PRN (10:14)
[2022-12-31] MEDS: HYDROmorphone 0.5 MG/0.5 ML Syringe IVPUSH PRN (18:10)
[2022-12-31] MEDS: Melatonin 3 MG Tab PO PRN (21:30)
[2023-01-01] MEDS: Acetaminophen 325 MG Tab PO SCH ×4 (03:25→20:43)
[2023-01-01] MEDS: oxyCODONE 5 MG Tab PO PRN ×2 (04:54→20:46)
[2023-01-01 05:57] LABS: ANION GAP 12.4 (5-15); CALCIUM 8.7 mg/dL (8.5-10.1); EST CRCL DRUG DOSING (CG) 34.5 mL/min; POTASSIUM,K 3.4 mEq/L (3.5-5.1)
[2023-01-01 05:58] LABS: BASOPHILS ABSOLUTE AUTO 0.03 K/mm3 (0.01-0.08); BASOPHILS PERCENT AUTO 0.6 % (0.1-1.2); EOSINOPHILS ABSOLUTE AUTO 0.19 K/mm3 (0.04-0.36); EOSINOPHILS PERCENT AUTO 3.7 (0.7-5.8); HEMATOCRIT 38.7 % (34.1-44.9); HEMOGLOBIN 12.7 gm/dl (11.2-15.7); IMMATURE GRAN ABSOLUTE AUTO 0.01 K/mm3 (0.00-0.10); IMMATURE GRAN PERCENT AUTO 0.2 % (<=1.0); LYMPHOCYTES ABSOLUTE AUTO 1.18 K/mm3 (1.18-3.74); LYMPHOCYTES PERCENT AUTO 22.8 % (19.3-51.7); MEAN CORPUSCULAR HEMOGLOBIN 30.8 pg (25.6-32.2); MEAN CORPUSCULAR HGB CONC 32.8 g/dl (32.2-35.5); MEAN CORPUSCULAR VOLUME 93.7 fl (79.4-94.8); MEAN PLATELET VOLUME 9.5 fl (9.4-12.3); MONOCYTES ABSOLUTE AUTO 0.52 K/mm3 (0.24-0.36); NEUTROPHILS ABSOLUTE AUTO 3.25 K/mm3 (1.56-6.13); NEUTROPHILS PERCENT AUTO 62.7 % (34.0-71.1); PLATELET COUNT,PLT 236 K/mm3 (182-369); RED BLOOD CELL COUNT 4.13 M/mm3 (3.98-5.22); WHITE BLOOD CELL COUNT,WBC 5.18 K/mm3 (3.98-10.04)
[2023-01-01] MEDS: HYDROmorphone 0.5 MG/0.5 ML Syringe IVPUSH PRN (07:21)
[2023-01-01] MEDS: Lidocaine 4% 1 each Patch TOP SCH (08:12)
[2023-01-01] MEDS: Enoxaparin 40 MG/0.4 ML Syringe SUBCUT SCH (08:12)
[2023-01-01] MEDS: atorvaSTATin 40 MG Tab PO SCH (08:13)
[2023-01-01] MEDS: Metoprolol Tartrate 25 MG Tab PO SCH (08:13)
[2023-01-01] MEDS: Aspirin 81 MG Tab.EC PO SCH (08:13)
[2023-01-01] MEDS: Pramipexole 0.25 MG Tab PO SCH (08:13)
[2023-01-01] MEDS: Docusate Sodium 100 MG Cap PO SCH (08:13)
[2023-01-01] MEDS: Acetaminophen/oxyCODONE 325-5 MG Tab PO PRN (14:12)
[2023-01-01] MEDS: Potassium Chloride 20 MEQ Tab.ER PO SCH (17:28)
[2023-01-01] MEDS: Melatonin 3 MG Tab PO PRN (20:43)
[2023-01-02] MEDS: Acetaminophen 325 MG Tab PO SCH ×4 (02:32→21:51)
[2023-01-02 05:59] LABS: BASOPHILS ABSOLUTE AUTO 0.02 K/mm3 (0.01-0.08); BASOPHILS PERCENT AUTO 0.5 % (0.1-1.2); EOSINOPHILS ABSOLUTE AUTO 0.14 K/mm3 (0.04-0.36); EOSINOPHILS PERCENT AUTO 3.4 (0.7-5.8); HEMATOCRIT 39.8 % (34.1-44.9); LYMPHOCYTES ABSOLUTE AUTO 1.08 K/mm3 (1.18-3.74); LYMPHOCYTES PERCENT AUTO 26.2 % (19.3-51.7); MEAN CORPUSCULAR HEMOGLOBIN 30.4 pg (25.6-32.2); MEAN CORPUSCULAR HGB CONC 32.7 g/dl (32.2-35.5); MEAN PLATELET VOLUME 9.4 fl (9.4-12.3); MONOCYTES ABSOLUTE AUTO 0.41 K/mm3 (0.24-0.36); NEUTROPHILS ABSOLUTE AUTO 2.47 K/mm3 (1.56-6.13); NEUTROPHILS PERCENT AUTO 59.9 % (34.0-71.1); PLATELET COUNT,PLT 238 K/mm3 (182-369); RED BLOOD CELL COUNT 4.28 M/mm3 (3.98-5.22); WHITE BLOOD CELL COUNT,WBC 4.12 K/mm3 (3.98-10.04)
[2023-01-02 06:08] LABS: ANION GAP 11.3 (5-15); BUN/CREATININE RATIO 14.4 (14-18); CALCIUM 8.9 mg/dL (8.5-10.1); CREATININE 0.9 mg/dL (0.55-1.02); EST CRCL DRUG DOSING (CG) 38.92 mL/min; POTASSIUM,K 4.3 mEq/L (3.5-5.1)
[2023-01-02] MEDS: Aspirin 81 MG Tab.EC PO SCH (09:21)
[2023-01-02] MEDS: atorvaSTATin 40 MG Tab PO SCH (09:21)
[2023-01-02] MEDS: Docusate Sodium 100 MG Cap PO SCH (09:21)
[2023-01-02] MEDS: Metoprolol Tartrate 25 MG Tab PO SCH (09:22)
[2023-01-02] MEDS: Pramipexole 0.25 MG Tab PO SCH (09:22)
[2023-01-02] MEDS: Enoxaparin 40 MG/0.4 ML Syringe SUBCUT SCH (09:24)
[2023-01-02] MEDS: Potassium Chloride 20 MEQ Tab.ER PO SCH (09:24)
[2023-01-02] MEDS: Lidocaine 4% 1 each Patch TOP SCH (09:24)
[2023-01-02] MEDS ORDERED: Pramipexole 0.5 MG Tab PO ONE (11:00)
[2023-01-02] MEDS ORDERED: Pramipexole 0.25 MG Tab PO ONE (11:00)
[2023-01-02] MEDS: oxyCODONE 5 MG Tab PO PRN ×2 (11:12→23:12)
[2023-01-02] MEDS: LORazepam 1 MG Tab PO PRN (15:56)
[2023-01-02] MEDS: Melatonin 3 MG Tab PO PRN (23:12)
[2023-01-02] MEDS: HYDROmorphone 0.5 MG/0.5 ML Syringe IVPUSH PRN (23:19)
[2023-01-03] MEDS: oxyCODONE 5 MG Tab PO PRN (01:21)
[2023-01-03] MEDS: Melatonin 3 MG Tab PO PRN (01:21)
[2023-01-03] MEDS: Acetaminophen 325 MG Tab PO SCH ×2 (04:20→08:13)
[2023-01-03] MEDS: LORazepam 1 MG Tab PO PRN (08:11)
[2023-01-03] MEDS: Docusate Sodium 100 MG Cap PO SCH (08:11)
[2023-01-03] MEDS: Potassium Chloride 20 MEQ Tab.ER PO SCH (08:11)
[2023-01-03] MEDS: Enoxaparin 40 MG/0.4 ML Syringe SUBCUT SCH (08:11)
[2023-01-03] MEDS: Lidocaine 4% 1 each Patch TOP SCH (08:11)
[2023-01-03] MEDS: atorvaSTATin 40 MG Tab PO SCH (08:13)
[2023-01-03] MEDS: Aspirin 81 MG Tab.EC PO SCH (08:13)
[2023-01-03] MEDS ORDERED: Pramipexole 0.5 MG Tab PO SCH (09:00)
[2023-01-03] MEDS ORDERED: Metoprolol Tartrate 25 MG Tab PO SCH (09:00)
== END 2023-01-03 13:35 | disposition home or self-care (01) | DRG 184 ==
LOC: JD.ED 11:51 → JD.MS 15:18
PROVIDERS: ADMIT Internal Medicine; ATTEND Internal Medicine
DX: S22.41XA Multiple fractures of ribs, right side, initial encounter for closed fracture (principal); G89.11 Acute pain due to trauma; E44.0 Moderate protein-calorie malnutrition; Z68.1 Body mass index [BMI] 19.9 or less, adult; I25.10 Atherosclerotic heart disease of native coronary artery without angina pectoris; I10 Essential (primary) hypertension; J44.9 Chronic obstructive pulmonary disease, unspecified; K21.9 Gastro-esophageal reflux disease without esophagitis; G89.29 Other chronic pain; M54.50 Low back pain, unspecified; F41.9 Anxiety disorder, unspecified; G47.00 Insomnia, unspecified; W19.XXXA Unspecified fall, initial encounter; M85.80 Other specified disorders of bone density and structure, unspecified site; W18.30XA Fall on same level, unspecified, initial encounter; R29.6 Repeated falls; E88.09 Other disorders of plasma-protein metabolism, not elsewhere classified; R62.7 Adult failure to thrive; E87.6 Hypokalemia; Z79.82 Long term (current) use of aspirin; Z79.899 Other long term (current) drug therapy; Z86.010 Personal history of colon polyps; Y92.009 Unspecified place in unspecified non-institutional (private) residence as the place of occurrence of the external cause; Z87.891 Personal history of nicotine dependence; Z98.49 Cataract extraction status, unspecified eye; Z86.73 Personal history of transient ischemic attack (TIA), and cerebral infarction without residual deficits; I25.2 Old myocardial infarction; Z95.5 Presence of coronary angioplasty implant and graft; Z90.710 Acquired absence of both cervix and uterus; Z98.890 Other specified postprocedural states
CPT/HCPCS: 36410; 36415; 71250; 71250-26; 80048; 80053; 81001; 83735; 84484; 85025; 93005; 93010; 94760; 97116-GP; 97162-GP; 97166-GO; 97530-GO; 97530-GP; 99223; 99232; 99239; 99284; 99285; A9270-GY; J1170; J1650

== ENCOUNTER 2023-06-22 09:52 | Emergency (ER) | payer MEDICARE, BC ==
[2023-06-22] MEDS ORDERED: Aspirin 81 MG Tab.Chew PO ONE (10:26)
[2023-06-22 10:48] LABS: BASOPHILS PERCENT AUTO 0.3 % (0.0-1.0); EOSINOPHILS PERCENT AUTO 0.1 % (0.0-6.0); HEMATOCRIT 38.3 % (37.0-47.0); HEMOGLOBIN 12.7 gm/dl (12.0-16.0); IMMATURE GRAN ABSOLUTE AUTO 0.03 K/mm3 (0.00-0.05); IMMATURE GRAN PERCENT AUTO 0.3 % (0.0-0.4); LYMPHOCYTES ABSOLUTE AUTO 0.7 K/mm3 (1.0-4.8); LYMPHOCYTES PERCENT AUTO 8.1 % (24.0-44.0); MEAN CORPUSCULAR HEMOGLOBIN 30.8 pg (28.0-32.0); MEAN CORPUSCULAR HGB CONC 33.2 g/dl (32.0-36.0); MEAN PLATELET VOLUME 9.3 fl (9.4-12.3); MONOCYTES ABSOLUTE AUTO 0.2 K/mm3 (0.0-0.8); MONOCYTES PERCENT AUTO 2.2 % (0.0-8.0); NEUTROPHILS ABSOLUTE AUTO 7.9 K/mm3 (1.8-7.7); PLATELET COUNT,PLT 230 K/mm3 (150-400); RED BLOOD CELL COUNT 4.12 M/mm3 (4.10-5.30); WHITE BLOOD CELL COUNT,WBC 8.91 K/mm3 (3.9-11.3)
[2023-06-22 11:03] LABS: INR 0.96; PROTHROMBIN TIME 10.3 SECONDS (9.7-12.0)
[2023-06-22 11:05] LABS: PTT,PARTIAL THROMBOPLSTIN TIME 20.8 SECONDS (21.7-31.4)
[2023-06-22 11:14] LABS: A/G RATIO 0.9 (1-2); ALBUMIN 3.4 g/dl (3.4-5.0); ANION GAP 11.6 (5-15); BILIRUBIN TOTAL 0.6 mg/dL (0.2-1.0); BUN/CREATININE RATIO 20.9 (14-18); CALCIUM 9.5 mg/dL (8.5-10.1); CREATININE 1.1 mg/dL (0.55-1.02); EST CRCL DRUG DOSING (CG) 32.44 mL/min; POTASSIUM,K 4.6 mEq/L (3.5-5.1)
[2023-06-22] MEDS ORDERED: Atropine 0.1 MG/ML 10 ML Syringe IVPUSH ONE (11:24)
[2023-06-22] MEDS ORDERED: Heparin Sodium/D5W 25,000 UNITS/500 ML BAG IV SCH (11:30)
[2023-06-22] MEDS ORDERED: Heparin Sodium 5,000 Units/ML Vial IVPUSH ONE (11:30)
[2023-06-22] MEDS ORDERED: Tenecteplase 50 MG Kit IV ONE (11:30)
[2023-06-22] MEDS ORDERED: DOPamine/Dextrose 5%-Water 400 MG/250 ML BAG ONE (11:31)
[2023-06-22] MEDS ORDERED: DOPamine/Dextrose 5%-Water 400 MG/250 ML BAG IV SCH (11:45)
[2023-06-22] MEDS ORDERED: fentaNYL 100 MCG/2 ML SDV ONE (12:37)
[2023-06-22] MEDS ORDERED: fentaNYL 100 MCG/2 ML SDV IVPUSH ONE (12:46)
== END 2023-06-22 12:58 ==
LOC: JD.ED 09:52
DX: I21.19 ST elevation (STEMI) myocardial infarction involving other coronary artery of inferior wall (principal); R57.0 Cardiogenic shock; I25.10 Atherosclerotic heart disease of native coronary artery without angina pectoris; I10 Essential (primary) hypertension; I25.2 Old myocardial infarction; J44.9 Chronic obstructive pulmonary disease, unspecified; Z79.82 Long term (current) use of aspirin; Z79.899 Other long term (current) drug therapy
CPT/HCPCS: 36415; 70450; 71045; 80053; 83735; 84484; 85025; 85610; 85730; 92977; 93005; 96365; 96366; 96368; 96375; 99285; A9270; J0461; J1265; J1644; J3010; J3101; 93010